=== PATIENT | male | born 1950 | race Caucasian/White ===

== ENCOUNTER → 2016-10-29 | Outpatient (CLI) | payer MEDICARE ==
[~2016-10-29] MED LIST: Furosemide PO; LEV500T PO; OME20GT; SACC250C PO; SPIR25TA88 PO; ZOLP10TA6 PO; ZOLP5TAB5
[2016-10-29 09:07] LABS: Basophils # (auto) 0 uL; Basophils % (auto) 0.4 % (0.0-2.0); DEFINITIVE VIEW TRANSMISSION; Eosinophils # (auto) 0 uL; Hematocrit 35.8 % (41.0-53.0); Hemoglobin 11.5 g/dL (13.5-17.5); Lymphocytes # (auto) 0.9 uL; Lymphocytes % (auto) 14.4 % (10.0-50.0); Mean Corpuscular Hemoglobin 29.1 pg (28.0-32.0); Mean Corpuscular Hgb Conc. 32.2 g/dL (32.0-36.0); Mean Corpuscular Volume 90.4 fL (80.0-100.0); Mean Platelet Volume 9.1 fL (7.4-10.4); Monocytes # (auto) 0.6 uL; Monocytes % (auto) 10.2 % (0.0-12.0); Neutrophils # (auto) 4.8 uL; Platelet Count (auto) 132 10^3/uL (140-450); White Blood Cell 6.4 10^3/uL (4.4-10.8)
[2016-10-29 09:14] LABS: Red Cell Distribution Width 22.2 % (11.6-16.0)
[2016-10-29 09:49] LABS: Anisocytosis Slight; Platelet Estimate Decreased; Prothrombin Time 15.5 sec (9.37-12.3)
[2016-10-29 09:50] LABS: INR 1.5 (0.9-1.15)
== END | disposition home or self-care (01) ==
LOC: US 08:27
PROVIDERS: ATTEND Internal Medicine
DX: R10.9 Unspecified abdominal pain (principal)
CPT/HCPCS: 36415; 76942; 85025; 85610; 85730; C1729